=== PATIENT | female | born 1935 | race Caucasian/White ===

== ENCOUNTER 2018-08-10 22:03 | Observation (INO) | payer MEDICARE, OTHER ==
[~2018-08-10] VITALS: Ht 154.9 cm; Wt 68.0 kg
--- NOTE | ~2018-08-10 | HEMODYNAMI ---
PATIENT:ELIZABETH GARCIA MEDICAL RECORD: [id number] : 31 LOCATION:[address] ADMISSION DATE: 08/10/18 Generatedon:08/11/201816:00 Patient name: ELIZABETH GARCIA Patient #: [id number] SSN: : 1935 Date of study: 08/11/2018 Page: Of Hemodynamic Procedure Report Patient Data Patient Demographics Procedure consent was obtained First Name: ELIZABETH Gender: Female Last Name: JOSE : 1935 Patient #: [id number] Age: 82 year(s) Race: Unknown Additional ID: [id number] Contact details [address]: [address] [place] [address] State: [place] City: [place] Zip code: [address] Past Medical History Allergies: No known allergies Admission Admission Data Admission Date: 08/10/2018 Admission Time: 23:35 Room #: 2121 Lab Results Lab Result Date: 08/11/2018 Lab Result Time: 0:00 Biochemistry Name Units Result Min Max BUN mg/dl 21 --(----)-* 7 18 Creatinine mg/dl 1.2 --(---*)-- 0.6 1.3 CBC Name Units Result Min Max Hemoglobin g/dl 12.5 *-(----)-- 13.5 17.5 Procedure Procedure Types Cath Procedure Diagnostic Procedure [facility] w/Coronaries Peripheral Cath Diagnostic Procedure Home Health Attendant Peripheral Procedures Four Vessel Arteriogram Procedure Description Procedure Date Procedure Date: 08/11/2018 Procedure Start Time: 15:40 Procedure End Time: 15:58 Procedure Staff Name Function Manolo Loza MD Performing Physician Jeff Abreu RT Monitor Sadaf Arechiga RT Scrub Amanda Salinas RN Nurse Chaparrita Mohamud RN Nurse Carla Mata RT Monitor Procedure Data Cath Procedure Fluoroscopy Diagnostic fluoroscopy Total fluoroscopy Time: 3 time: 3 min min Diagnostic fluoroscopy Total fluoroscopy dose: 214 dose: 214 mGy mGy Contrast Material Contrast Material Type Amount (ml) Isovue 300 91 Entry Location Entry Primary Successful Side Size Upsize Upsize Entry Closure Succes sful Closure Location (Fr) 1 (Fr) 2 (Fr) Remarks Device Remarks Femoral Right 5 Fr Exoseal artery Estimated blood loss: 5 ml Diagnostic catheters Device Type Used For End Catheter Placement MULTIPACK JL 4.0 5Fr Left Coronary catheter Angiography MULTIPACK 3DRC 5Fr Right Coronary catheter Angiography MULTIPACK Pigtail 5 Fr LV Angiography catheter Procedure Complications No complications Procedure Medications Medication Administration Route Dosage 0.9% NaCl I.V. 100 ml/hr Oxygen etCO2 Nasal cannula 2 l/min Lidocaine 2% added to field 20 Heparin Flush Bag added to field 2 bags (1000units/500ml NS) Versed I.V. 1 mg Fentanyl I.V. 50 mcg Versed I.V. 1 mg Hemodynamics Rest HGB: 12.5 (g/dl) Heart Rate: 62 (bpm) Pressure Samples Time Site Value (mmHg) Purpose Heart Use Rate(bpm) 15:48 LV 190/7,13 Snapshot 72 15:49 AO 164/64(116) Pullback 75 15:49 LV 191/12,12 Pullback 75 Gradients Valve Time Site 1 Site 2 Mean SEP/DFP Peak To Heart Use (mmHg) (sec/min) Peak Rate (mmHg) (bpm) Aortic 15:49 LV AO 21 21 27 75 191/12,12 164/64(116) Calculations Valve P-P Mean Valve Index Valve Source Name Gradient Area Flow (cm2) Aortic 27 21 27 21 Snapshots Pre Cath Intra NCS Post Cath Vital Signs Time Heart Resp SPO2 etCO2 NIBP (mmHg) Rhythm Pain Sedation Rate (ipm) (%) (mmHg) Status Level (bpm) 15:30:42 61 12 96 32 193/81(147) NSR 0 (11) 10(A) , No pain 15:35:06 71 10 95 30 141/75(123) NSR 0 (11) 10(A) , No pain 15:39:24 63 12 95 30.6 132/75(103) NSR 0 (11) 9(A) , No pain 15:43:34 75 11 96 31.2 148/87(131) NSR 0 (11) 9(A) , No pain 15:47:54 82 14 96 32 158/73(123) NSR 0 (11) 10(A) , No pain 15:52:16 79 12 97 31 158/73(119) NSR 0 (11) 10(A) , No pain 15:56:36 72 13 98 3.7 161/80(118) NSR 0 (11) 10(A) , No pain Medications Time Medication Route Dose Verified Delivered Reason Notes Eff ectiveness by by 15:20:53 0.9% NaCl I.V. 100 Manolo Justiceyla used for ml/hr [facility] Mohamud procedure MD [place] 15:21:01 Oxygen etCO2 2 Manolo Justiceyla used for Nasal l/min [facility] procedure cannula MD [place] 15:21:07 Lidocaine 2% added 20ml Manolo French for local to vial [facility] anesthetic field MD ESTRADA 15:21:11 Heparin Flush added 2 Manolo French used for Bag to bags [facility] procedure (1000units/500ml field MD ESTRADA NS) 15:32:05 Versed I.V. 1 mg Manolo Lariosa for DagoJose Alfredo Mohamud sedation MD [place] 15:32:15 Fentanyl I.V. 50 Manolo Lariosa for mcg DagoJose Alfredo Mohamud sedation MD [place] 15:38:14 Versed I.V. 1 mg Manolo Lariosa for Hamel Cade sedation MD SHELBYmanager statistics Log Time Note 15:11:31 Signed procedure consent form obtained from patient. 15:11:41 H&P Date Dictated: 08/10/2018 Within 30 days and on chart., H&P Addendum completed by physician on day of procedure. (MUST COMPLETE FOR ALL OUTPATIENTS). 15:11:49 Patient allergic to No known allergies 15:14:34 Lab Result : BUN 21 mg/dl 15:14:34 Lab Result : Hemoglobin 12.5 g/dl 15:14:34 Lab Result : Creatinine 1.2 mg/dl 15:14:40 Amanda Salinas RN sent for patient. Start room use. 15:20:53 0.9% NaCl 100 ml/hr I.V. was administered by Chaparrita Mohamud RN; used for procedure; 15:21:01 Oxygen 2 l/min etCO2 Nasal cannula was administered by Chaparrita Mohamud RN; used for procedure; 15:21:07 Lidocaine 2% 20ml vial added to field was administered by Manolo Loza MD; for local anesthetic; 15:21:11 Heparin Flush Bag (1000units/500ml NS) 2 bags added to field was administered by Manolo Loza MD; used for procedure; 15::44 Signed procedure consent form obtained from patient. 15::54 Patient received from Med II to CCL 1 Alert and oriented. Tansferred to table in Supine position. 15:23:55 Warm blankets applied, and farooq hugger turned on for patient comfort. 15::55 Correct patient and procedure confirmed by team. 15:26:17 ECG and BP/O2 sat monitors applied to patient. 15::18 Full Disclosure recording started 15:28:09 Pre-procedure instructions explained to patient. 15:28:09 Pre-op teaching completed and patient verbalized understanding. 15:28:11 Family unavailable. 15:28:13 Patient NPO since Midnight. 15:28:31 Vital chart was started 15::34 Rhythm: sinus rhythm 15::38 Is the patient allergic to Iodine/contrast media? No. 15:28:40 Is patient on blood thinner?No 15:28:42 Patient diabetic? No. 15:28:45 Previous problem with sedation/anesthesia? No ? 15:28:46 Snore? Yes 15:28:47 Sleep apnea? No 15:28:48 Deviated septum? No 15:28:49 Opens mouth fully? Yes 15:28:50 Sticks out tongue? Yes 15:28:52 Airway obstruction? No ? 15:28:53 Dentures? No ? 15:28:56 Pre procedure: right dorsailis pedis pulse 2+ Normal; easily identifiable; not easily obliterated 15:28:58 Patient pain scale 0/10 ?. 15:29:18 IV patent on arrival in left hand with 0.9% NaCl at O. 15:29:21 Lab results completed and on chart. 15:29:24 Right groin area was prepped with chlora-prep and draped in sterile fashion 15::25 Alarms reviewed by R. N. 15:29:26 Sharps counted by scrub and verified by R.N. 15:29:42 Baseline sample Acquired. 15:29:53 Use device set Femoral Dx 15:29:54 ACIST Syringe (81727) opened to sterile field. 15:29:55 Bag Decanter (2002) opened to sterile field. 15:29:55 Medline Cath Pack ([id number]) opened to sterile field. 15:29:56 DIAGNOSTIC WIRE .035 260cm J wire (740465) opened to sterile field. 15:29:57 ACIST Hand Control (65022) opened to sterile field. 15:29:58 ACIST Manifold (40441) opened to sterile field. 15:29:58 DIAGNOSTIC Multipack 5Fr catheter set (SM0827) opened to sterile field. 15:29:59 Tegaderm 4 x 4 (1626W) opened to sterile field. 15:30:02 SHEATH Prelude 5Fr 0.035 (GTT-2H-14-035) opened to sterile field. 15:31:05 Final Timeout: patient, procedure, and site verified with staff and physician. All members of the team are in agreement. 15:31:08 Right groin site verified by team. 15:31:12 Physical assessment completed. ASA score P 2 - A patient with mild systemic disease as per Manolo Loza MD. 15:31:20 Sedation plan: IV Moderate Sedation Medication:Versed, Fentanyl 15:32:05 Versed 1 mg I.V. was administered by Chaparrita Mohamud RN; for sedation; 15:32:15 Fentanyl 50 mcg I.V. was administered by Chaparrita Mohamud RN; for sedation; 15:38:14 Versed 1 mg I.V. was administered by Chaparrita Mohamud RN; for sedation; 15:38:55 Zero performed for pressure channel P1 15:39:55 Procedure started. 15:40:03 Local anesthetic to right femoral artery with Lidocaine 2% by Manolo Loza MD.INITIAL ACCESS ONLY 15:41:38 A 5 Fr sheath was inserted into the Right Femoral artery 15:41:49 A MULTIPACK JL 4.0 5Fr catheter was advanced over the wire and used for Left Coronary Angiography. 15:42:36 LCA angiography performed. 15:42:39 Injector settings: Ml/sec: 3, Volume: 6, 15:43:14 Catheter removed. 15:43:22 A MULTIPACK 3DRC 5Fr catheter was advanced over the wire and used for Right Coronary Angiography. 15:44:11 RCA angiography performed. 15:44:15 Injector settings: Ml/sec: 3, Volume: 6, 15:45:09 Bilateral carotid angiography performed. 15:48:02 Catheter removed. 15:48:09 A MULTIPACK Pigtail 5 Fr catheter was advanced over the wire and used for LV Angiography. 15:48:41 LV hemodynamics recorded. 15:48:42 LV gram done using VINSON 15:48:45 Injector settings: Ml/sec: 5, Volume: 15, 15:49:14 EF : 55 % 15:49:53 Catheter removed. 15:49:55 EXOSEAL 5Fr (EX500) opened to sterile field. 15:52:13 Sheath removed intact; hemostasis achieved with Exoseal to the Right Femoral artery. 15:52:15 Procedure ended.(Physican Out) 15:52:35 Fluoroscopy time 03.00 minutes. 15:52:47 Flurop Dose total: 214 15:52:47 Fluoroscopy dose: 214 mGy 15:53:02 Contrast amount:Isovue 300 91ml. 15:53:39 Sharps counted by scrub and verified by R.N. 15:53:40 Insertion/operative site no bleeding no hematoma. 15:53:43 Post-op/insertion site Right Femoral artery dressed using a 4 x 4 and Tegaderm. 15:53:50 Post right femoral artery:stable 15:53:52 Post Procedure Pulses reassessed and unchanged 15:53:55 Post procedure rhythm: unchanged. 15:53:58 Estimated blood loss: 5 ml 15:54:00 Post procedure instruction explained to patient.Patient verbalizes understanding. 15:54:01 Patient needs reinforcement of post procedure teaching. 15:58:32 Procedure and supply charges have been captured, reviewed, submitted and are correct. 15:58:37 Procedure Complication : No complications 15:58:40 Vital chart was stopped 15:58:41 See physician's report for complete and final results. 15:58:46 Report given to [facility]. 15:58:49 Patient transfered to [facility] with Stretcher. 15:58:51 Procedure ended. 15:58:51 Full Disclosure recording stopped 15:58:57 End room use (Document Last) Device Usage Item Name Manufacture Quantity Catalog Number Hospital Part Current M inimal Lot# / Charge Number Stock Stock Serial# Code ACIST Syringe Acist 1 53692 678463 777925 542501 2 0 (68267) [employer] Bag Decanter Microtek 1 105588 99216 732816 5 () [employer] Inc[employer] Medline Cath Medline 1 [id number] 836650 08313 304931 5 Pack ([id number]) DIAGNOSTIC WIRE St Henrik 1 470963 285592 292987 018627 3 0 .035 260cm J wire (458162) ACIST Hand Acist 1 09017 108056 214505 378851 5 Control (22480) [employer] ACIST Manifold Acist 1 99803 588086 308272 670879 5 (28509) [employer] DIAGNOSTIC Cardinal 1 RT2023 848159 16802 614164 3 0 Multipack 5Fr Health catheter set (VH0716) Tegaderm 4 x 4 3M 1 1626W 645885 152723 980691 5 (1626W) SHEATH Prelude Merit 1 UXO-4D-01-035 310564 654063 178318 5 5Fr 0.035 Medical (SWG-6I-13-035) MULTIPACK JL Cardinal 1 [id number] 5 4.0 5Fr Health catheter MULTIPACK 3DRC Cardinal 1 570019 5 5Fr catheter Health MULTIPACK Cardinal 1 400892 5 Pigtail 5 Fr Health catheter EXOSEAL 5Fr Cardinal 1 EX500 579669 300736 627979 1 0 (EX500) Health Signature Audit [place] Stage Time Signature Unsigned Intra-Procedure 08/11/2018 Carla Mata 4:00:34 PM RT(R) Signatures Monitor : Jeff Abreu RT Signature : Date : Time : Monitor : Carla Mata RT Signature : Date : Time : [place] [id number] [place] [address]
--- NOTE | ~2018-08-10 | OP ---
PATIENT NAME: ELIZABETH GARCIA MEDICAL RECORD: [id number] :31 LOCATION:D.M2 D.1 ADMISSION DATE:08/10/18 SURGEON: NITZA SALAZAR MD DATE OF OPERATION: 08/11/2018 PROCEDURES: Left heart catheterization, selective coronary angiography plus 4-vessel arteriography, right femoral artery approach. CATHETERS: A 5-Thai sheath, 5/4 left and right Zehra, 5/4 pig. The procedure was well tolerated. The patient returned to the singh, sheath removed. ExoSeal device placed. FINDINGS: Left ventriculography in 30-degree VINSON view. Normal wall motion. Normal systolic function. CORONARY ANATOMY: LEFT MAIN: Left main is free of disease. LAD: Free of disease in the diagonal system. CIRCUMFLEX: Free of disease in the marginal system. RIGHT CORONARY ARTERY: Dominant artery, gives rise to PDA, free of disease. The right coronary catheter is pulled proximally and the right common carotid was selectively engaged to the right innominate. This shows a right common carotid small vessel, free of disease. Right internal carotid is smooth-walled vessel, free of disease. Right external carotid is smooth-walled vessel, free of disease. The catheter was withdrawn further and the left common carotid was selectively engaged. It shows smooth-walled vessel, free of disease. Left external carotid is smooth-walled vessel, free of disease. Left internal carotid is smooth-walled vessel, free of disease. IMPRESSION: Normal 4-vessel arteriography, normal coronary anatomy, normal LV function. TRANSINT:[id number] Voice Confirmation ID: [id number] DOCUMENT ID: [id number] NITZA SALAZAR MD at 0802 CC: [id number] DICTATION DATE: 08/11/18 1559 EMERGENCY COMMUNICATIONS OPERATOR: 08/11/18 1630 DIS IN 08/11/18 [facility] [address] [facility] [place] [address]
--- NOTE | ~2018-08-10 | MORECARE ---
CASE MANAGEMENT DISCHARGE SUMMARY PATIENT: ELIZABETH GARCIA UNIT: [id number] ADM DATE: 08/10/18 AGE: 82 : [birth year] SEX: F ROOM/BED: D.2121 AUTHOR: BRANDEE GUAJARDO PHYSICIAN: REFERRING PHYSICIAN: JOHNSON ROWLEY MD DATE OF SERVICE: 08/11/18 Discharge Plan Patient Name: ELIZABETH GARCIA Facility: [facility]:[place] : 1935 Planned Disposition: Home Anticipated Discharge Date: 08/11/18 Discharge Date: Expected LOS: 1 Initial Reviewer: [id number] Initial Review Date: 08/11/2018 Generated: 08/11/18 5:59 pm Patient Name: ELIZABETH GARCIA Page [id number] at 1700 All edits/amendments must be made on the electronic document DICTATION DATE: 08/11/181658 DIAMOND DIE DRILLER: CARLOS 08/11/181658 RPT#: [id number] DC DATE: STATUS: ADM IN [facility] [address] [place] [address] END OF REPORT
[2018-08-10] MEDS ORDERED: SYNTHROID88 MCG PO (22:11)
[2018-08-10 22:30] LABS: BASOPHILS 0.5 % (0-2); EOSINOPHILS 2.3 % (0-7); HEMATOCRIT 38.8 % (36.0-48.0); HEMOGLOBIN 12.8 g/dL (12-16); IMMATURE GRANULOCYTES 0.1 % (0-5); LYMPHOCYTES 47.8 % (15-50); MCH 28.4 pg (26.0-34.0); MCV 86.2 fL (80.0-100.0); MEAN PLATELET VOLUME 9.6 fL (7.4-10.4); MONOCYTES 7.3 % (2-11); PLATELET COUNT 179 10x3/uL (130-400); RDW 13.2 % (11.5-14.5); WBC 7.4 10x3/uL (4.8-10.8)
[2018-08-10 22:39] LABS: APTT 30.8 SECONDS (22.8-39.4); INR 0.89 (0.85-1.17); PROTIME 11.7 SECONDS (11.6-15.0)
[2018-08-10 22:47] LABS: ALBUMIN 3.4 g/dL (3.4-5.0); ALKALINE PHOSPHATASE 85 U/L (46-116); ALT (SGPT) 24 U/L (10-68); BILIRUBIN - TOTAL 0.22 mg/dL (0.2-1.3); CALC OSMOLALITY 286 mosm/kg (275-300); CARBON DIOXIDE 28.7 mmol/L (21.0-32.0); CHLORIDE - SERUM 106 mmol/L (98-107); CREATININE - SERUM 1.2 mg/dL (0.6-1.3); GLUCOSE 107 mg/dL (74-106); POTASSIUM - SERUM 3.9 mmol/L (3.5-5.1); PROTEIN - SERUM 6.9 g/dL (6.4-8.2); SODIUM 142 mmol/L (136-145); UREA NITROGEN 25 mg/dL (7-18); eGFR NON AFRICAN AMERICAN 45 mL/min (90-120)
[2018-08-10 22:51] VITALS: BP 165/73
[2018-08-10 23:00] LABS: CKMB 0.8 U/L (0.0-3.6); CREATINE KINASE 48 UL (21-215); PRO BNP 162 pg/mL (0-450); THYROID STIMULATING HORMONE 2.17 uIU/mL (0.36-3.74)
[2018-08-10 23:04] LABS: TROPONIN-I < 0.017 ng/mL (0.000-0.060)
[2018-08-10 23:20] LABS: APPEARANCE CLEAR (CLEAR); BILIRUBIN NEGATIVE (NEGATIVE); COLOR YELLOW (YELLOW); GLUCOSE NEGATIVE (NEGATIVE); KETONE NEGATIVE (NEGATIVE); NITRITE NEGATIVE (NEGATIVE); PROTEIN NEGATIVE (NEGATIVE); UROBILINOGEN NORMAL (NORMAL)
[2018-08-10 23:30] VITALS: BP 171/76
[2018-08-11] VITALS (7 sets, daily range): BP systolic 138–216; BP diastolic 63–89; Ht 154.9 cm; Wt 68.0 kg
[2018-08-11 10:27] LABS: BASOPHILS 0.7 % (0-2); EOSINOPHILS 3.6 % (0-7); HEMATOCRIT 38.1 % (36.0-48.0); HEMOGLOBIN 12.5 g/dL (12-16); IMMATURE GRANULOCYTES 0.2 % (0-5); LYMPHOCYTES 36.7 % (15-50); MCH 28.3 pg (26.0-34.0); MCHC 32.8 g/dL (31.0-37.0); MCV 86.2 fL (80.0-100.0); MEAN PLATELET VOLUME 9.7 fL (7.4-10.4); MONOCYTES 7.7 % (2-11); NEUTROPHILS 51.1 % (40-80); PLATELET COUNT 176 10x3/uL (130-400); RBC 4.42 10x6/uL (4.00-5.40); RDW 13.3 % (11.5-14.5)
[2018-08-11 10:28] LABS: WBC 4.4 10x3/uL (4.8-10.8)
[2018-08-11 10:56] LABS: CALC OSMOLALITY 288 mosm/kg (275-300); CARBON DIOXIDE 30.5 mmol/L (21.0-32.0); CHLORIDE - SERUM 107 mmol/L (98-107); CREATININE - SERUM 1.2 mg/dL (0.6-1.3); GLUCOSE 89 mg/dL (74-106); POTASSIUM - SERUM 3.8 mmol/L (3.5-5.1); SODIUM 144 mmol/L (136-145); TROPONIN-I < 0.017 ng/mL (0.000-0.060); UREA NITROGEN 21 mg/dL (7-18); eGFR NON AFRICAN AMERICAN 45 mL/min (90-120)
== END 2018-08-11 20:52 | disposition home or self-care (01) ==
LOC: D.ER 22:03 → D.M2 23:35 → OBSVTIME 23:35 → D.M2 23:35
PROVIDERS: Family Medicine; Internal Medicine Interventional Cardiology
DX: R07.9 Chest pain, unspecified (principal); Z82.49 Family history of ischemic heart disease and other diseases of the circulatory system; E03.9 Hypothyroidism, unspecified; R53.83 Other fatigue